=== PATIENT | female | born 1965 | race Hispanic/Latino ===

== ENCOUNTER 2022-05-29 20:36 | Emergency (ER) | payer BC, SELFPAY ==
[2022-05-29] MEDS ORDERED: Ketorolac Tromethamine 30 MG/ML VIAL ONE (22:06)
[2022-05-29] MEDS ORDERED: Ondansetron PF 4 MG/2 ML Vial ONE (22:06)
[2022-05-29 22:11] LABS: #Basophils 0.1 10x3/uL (0.0-0.2); #Eosinphils 0.2 10x3/uL (0.0-0.5); #Monocytes 0.5 10x3/uL (0.0-1.1); #Neutrophils 3.7 10x3/uL (1.5-8.4); %Basophils 0.9 % (0.0-2.0); %Eosinophils 2.3 % (0.0-6.0); %Lymphocytes 30.9 % (18.0-47.0); %Monocytes 7.8 % (0.0-10.0); %Neutrophils 57.8 % (40.0-75.0); Hemoglobin 15.1 g/dL (12.0-15.5); Mean Corpuscular HGB CONC 35.1 g/dL (32.0-36.0); Mean Corpuscular Volume 85.5 fl (81.6-98.3); Mean Platelet Volume 12.1 fl (7.4-10.4); Platelet Count 150 10x3/uL (150-450); RBC Distribution Width 12.1 % (11.5-14.5); Red Blood Cell (RBC) Count 5.03 10x6/uL (3.90-5.03); White Blood Cell (WBC) Count 6.4 10x3/uL (3.5-10.5)
[2022-05-29 22:25] LABS: Lipase 50 U/L (8-78); Magnesium 2.2 mg/dL (1.6-2.6)
[2022-05-29 22:37] LABS: Bilirubin Neg (Negative); Blood, Urine Negative (Negative); Clarity Slightly Cloudy (Clear); Glucose, Urine (Dipstick) Normal (Negative); Ketone, Urine Negative (Negative); Leukocyte 500 (Negative); Nitrite Negative (Negative); Protein, Urine (Dipstick) Negative (Neg-Trace); Urobilinogen Normal mg/dL (Less than 2)
[2022-05-29 22:59] LABS: Bacteria/HPF None Seen HPF (None Seen); Mucous/LPF 2+ LPF (<2+); RBC/HPF None Seen HPF (0-3); Squamous Epithelial 0-3 HPF (0-3); Transitional Epithelial 0-3 HPF (None Seen)
[2022-05-30 00:03] LABS: ALT (SGPT) 55 U/L (8-55); Albumin 4.3 g/dL (3.5-5.0); Alkaline Phosphatase 145 U/L (40-110); Anion Gap 16 mmol/L (10-20); BUN (Urea Nitrogen) 12 mg/dL (9.8-20.1); Bilirubin, Total 0.5 mg/dL (0.2-1.2); Calc. Creatinine Clearance 0 mL/min (70-130); Calcium 9.1 mg/dL (7.8-10.44); Carbon Dioxide 22 mmol/L (22-29); Chloride 107 mmol/L (98-107); Estimated GFR 82; Globulin 3.7 g/dL (2.4-3.5); Glucose 99 mg/dL (70-105); Potassium 3.9 mmol/L (3.5-5.1); Sodium 141 mmol/L (136-145)
[2022-05-30 00:05] LABS: AST (SGOT) 57 U/L (5-34)
== END 2022-05-30 01:24 | disposition home or self-care (01) ==
LOC: CSHERS 20:36
DX: K80.50 Calculus of bile duct without cholangitis or cholecystitis without obstruction (principal)
CPT/HCPCS: 74176; 76705; 80053; 81003; 81015; 83690; 83735; 85025; 93005; 96374; 96375; J1885; J2405